=== PATIENT | female | born 1970 | race Caucasian/White ===

== ENCOUNTER 2017-04-17 12:27 | Emergency (ER) | payer MEDICAID ==
[~2017-04-17] VITALS: Ht 162.6 cm; Wt 71.5 kg
[~2017-04-17 12:27] MED LIST: BACTDS PO; NITR-58 PO; PHEN-537 PO
[2017-04-17 12:40] VITALS: Ht 162.6 cm; Wt 71.5 kg
--- NOTE | 2017-04-17 13:42 | RADRPT ---
PROCEDURE: CT Brain without contrast. CLINICAL INDICATION: Headaches TECHNIQUE: CT scan of the brain was performed on a multidetector high-resolution CT scan. Axial im aging was obtained of the brain without contrast administration. Coronal and sagittal reformatted i mages were obtained from the axial source images. Standard CT scan of the head without contrast prot ocols were performed. The total exam CTDI equals 44.97 mGy and the total exam DLP equals 720.23 mGy-cm. One or more of the following dose reduction techniques were used: - Automated exposure control. - Adjustment of the mA and/or kV according to patient size. Use of iterative reconstruction technique. COMPARISON: None. FINDINGS: Ventricular system and peripheral CSF spaces are unremarkable. Negative for intracranial masses hem orrhages or midline shift. The montana-white matter junction is unremarkable. The bones and calvarium are intact. Paranasal sinuses and mastoids visualized are unremarkable. Recommend reference to th e CT scan of the paranasal sinus report done the same day. IMPRESSION: No evidence of intracranial masses hemorrhages or midline shift. RPTAT:AAJJ Physician Armin Date Time Electronically viewed and signed by Physician Armin on 04/17/2017 13:42 BM/
--- NOTE | 2017-04-17 13:48 | RADRPT ---
PROCEDURE: CT scan of the sinuses without contrast. CLINICAL INDICATION: Headache TECHNIQUE: CT scan of the sinuses without contrast was performed on a multidetector high-resoluti on CT scan. Standard CT scan of the sinuses without contrast protocols were performed. The total exam CTDI equals 24.08 mGy and the total exam DLP equals 472.80 mGy-cm. One or more of the following dose reduction techniques were used: - Automated exposure control. - Adjustment of the mA and/or kV according to patient size. Use of iterative reconstruction technique. COMPARISON: None. FINDINGS: The paranasal sinuses are well pneumatized without evidence of mucosal thickening, soft tissue stacy s or air fluid levels. There is no evidence of bony erosion or expansion. The middle and inferior turbinates are unremarkable. The hiatus semilunaris are patent bilaterally. The nasal septum is sl ightly deviated to the left. There is no evidence of fractures. The globes are symmetrical without proptosis. There is no evidence of intra or extraconal fluid collections or masses. The muscles a nd optic nerves are unremarkable. The mastoids visualized are unremarkable. IMPRESSION: Negative CT scan of the paranasal sinuses. RPTAT:AAJJ Physician Armin Date Time Electronically viewed and signed by Physician Armin on 04/17/2017 13:48 /
[2017-04-17] MEDS ORDERED: IBUP-1542 PO (13:52)
[2017-04-17] MEDS ORDERED: PRED20TA PO (13:52)
[2017-04-17] MEDS ORDERED: ACETAMINOPHEN 500 MG TAB PO STA (13:53)
--- NOTE | 2017-04-17 13:56 | ERD ---
ER Documentation Chief Complaint Date/Time DATE: 04/17/17 TIME: 13:54 Chief Complaint [place] and dizziness starting this morning; no n/v HPI This 46-year-old female presents with headache sensation of mild dizziness possible swelling on the right side of the face starting today. She denies any fevers, congestion, cough, sore throat patient denies any visual changes or visual field deficits. She has a history of trauma. Pain is primarily in the right periorbital area and right cheek. ROS All systems reviewed and are negative except as per history of present illness. Medications Home Meds Active Scripts Ibuprofen* (Motrin*) 600 Mg Tab, 600 MG PO Q6H Y for PAIN, #20 TAB Prov:MICHELLE CAMILO MD 04/17/17 Prednisone* (Prednisone*) 20 Mg Tab, 40 MG PO DAILY for 4 Days, TAB Prov:MICHELLE CAMILO MD 04/17/17 Phenazopyridine Hcl* (Pyridium*) 100 Mg Tab, 100 MG PO TID Y for PAIN, #9 TAB 0 Refills Prov:WILD MAGANA PA-C 12/05/15 Nitrofurantoin Monohyd Macrocr (Macrobid) 100 Mg Capsr, 100 MG PO BID, #14 CAP 0 Refills Prov:WILD MAGANA PA-C 12/05/15 Phenazopyridine Hcl* (Pyridium*) 100 Mg Tab, 100 MG PO TID for 3 Days, TAB Prov:TREVER MARTIN 07/25/15 Sulfamethoxazole-Trimethoprim* (Bactrim* DS) 800-160 Mg Tab, 1 TAB PO BID for 10 Days, TAB Prov:TREVER MARTIN 07/25/15 Allergies Allergies: Coded Allergies: No Known Drug Allergy (Verified Allergy, Mild, 07/17/14) PMhx/Soc History of Surgery: Yes (APPENDECTOMY, C=SECTIONS X 3) Anesthesia Reaction: No Hx Neurological Disorder: No Hx Respiratory Disorders: No Hx Cardiac Disorders: No Hx Psychiatric Problems: No Hx Miscellaneous Medical Probl: No Hx Alcohol Use: No Hx Substance Use: No Hx Tobacco Use: No Physical Exam Vitals Vital Signs Date Time Temp Pulse Resp B/P Pulse Ox O2 Delivery O2 Flow Rate FiO2 04/17/17 12:40 98.2 70 18 124/61 99 Physical Exam Const: [] Alert, not ill-appearing per Head: Atraumatic Eyes: Normal Conjunctiva. Eyes are PERRLA and extra movements intact. Also some very subtle swelling on the right side of the face. There is no warmth, erythema or bony tenderness or deformities. TMs normal. ENT: Normal External Ears, Nose and Mouth. Neck: Full range of motion..~ No meningismus. Resp: Clear to auscultation bilaterally Cardio: Regular rate and rhythm, no murmurs Abd: Soft, non tender, non distended. Normal bowel sounds Skin: No petechiae or rashes Back: No midline or flank tenderness Ext: No cyanosis, or edema Neur: Awake and alert. Normal gait. Cranial nerves II through XII grossly intact Psych: Normal Mood and Affect Procedures/MDM Insert causes swelling and pain a CT brain and sinuses were performed which is as normal by the radiologist. Patient is right-sided headache very subtle swelling. He may be an allergic reaction. Consideration for Atkinson's palsy shows no specific cranial nerve VII palsy. No evidence of cellulitis, orbital cellulitis, neurologic deficit or signs or symptoms on studies to suggest intracranial hemorrhage, bleeding, additional causes of possible symptoms. Patient will be treated with short course prednisone and ibuprofen and instructed to follow-up with primary doctor this week return to the ER for any worsening symptoms. The patient was stable with no new complaints during the ER course. Clinically, there is no current evidence to suggest meningitis, sepsis, acute abdomen, pneumonia, acute coronary syndrome, pulmonary embolism, or any other emergent condition appearing to require further evaluation or hospitalization. The patient should certainly return for any new or worsening symptoms per the aftercare instructions. They should otherwise follow-up with her primary care doctor for reevaluation this week. Departure Diagnosis: Primary Impression: Headache Headache type: unspecified Headache chronicity pattern: unspecified pattern Intractability: not intractable Qualified Code: R51 - Nonintractable headache, unspecified chronicity pattern, unspecified headache type Condition: Stable Patient Instructions: Headache, Unspecified [facility] Usted se [place] hecho un examen mdico de control que le indica que no est en julio c condicin que requiera tratamiento urgente en el Departamento de Emergencia. Un estudio ms profundo y el tratamiento de mcdonald condicin pueden esperar sin ningn riesgo hasta que usted sea atendida/o en el consultorio de mcdonald mdico o julio c cl zeeshan. Es responsabilidad suya arreglar julio c carlos a para el seguimiento del nolan. MANEJO DE CONDICIONES NO URGENTES EN EL FUTURO 1) Si usted tiene un mdico de atencin primaria: Usted debera llamar a mcdonald mdico de atencin primaria antes de venir al departamento de emergencia. Despus de las horas de consultorio, mcdonald doctor o mcdonald asociado/a est disponible por telfono. El mdico o enfermero de cristiano en el servicio telefnico puede asesorarle por lyndsey medio para atender el problema, o nolan contrario se puede programar julio c carlos a. 2) Si usted no tiene un mdico de atencin primaria: Llame al mdico o clnica de referencia que aparece abajo martita las horas de consultorio para hacer julio c carlos a para que le vean. CLINICAS: [facility] [phone] [facility] [facility] [phone] [facility] [phone] [facility]. [place] [id number] [phone] [facility]. [place] [address] [phone] [facility]. [phone] [address] Additional Instructions: Examines normal hoy. Cheque otro vez con mcdonald doctor primario en el proximo maloney or regresa para mas o nueva simptomas. MICHELLE CAMILO MD April 17, 2017 13:56
[2017-04-17] MEDS ORDERED: predniSONE 20 MG TAB PO ONE (14:00)
== END 2017-04-17 14:39 | disposition home or self-care (01) ==
LOC: FTE 12:27
DX: R51 Headache (principal)
CPT/HCPCS: 70450; 70486; J7512; Z7502; Z7610

== ENCOUNTER 2017-06-19 06:41 | Emergency (ER) | payer MEDICAID ==
[~2017-06-19] VITALS: Ht 160 cm; Wt 70.0 kg
[~2017-06-19 06:41] MED LIST changes: +IBUP-1542 PO; +PRED20TA PO
[2017-06-19 06:47] VITALS: Ht 160 cm; Wt 70.0 kg
[2017-06-19] MEDS ORDERED: morphine 2 MG INJ IV STA (07:05)
[2017-06-19] MEDS ORDERED: ONDANSETRON 4 MG INJ IV STA (07:05)
[2017-06-19] MEDS ORDERED: SOD CHLORIDE 0.9% 1,000 ML IV STA (07:05)
[2017-06-19 07:40] LABS: BASOPHILS % 0.3 % (0.0-2.0); EOSINOPHILS # 0.3 10^3/ul (0.0-0.5); EOSINOPHILS % 4.2 % (0.0-7.0); HEMATOCRIT 35.2 % (37.0-47.0); HEMOGLOBIN 11.3 g/dl (12.0-16.0); LYMPHOCYTES # 2.5 10^3/ul (0.8-2.9); LYMPHOCYTES % 41.3 % (15.0-51.0); MEAN CORPUSCULAR HEMOGLOBIN 24.6 pg (29.0-33.0); MEAN CORPUSCULAR HGB CONC 32.1 g/dl (32.0-37.0); MEAN CORPUSCULAR VOLUME 76.5 fl (82.0-101.0); MEAN PLATELET VOLUME 9.2 fl (7.4-10.4); MONOCYTE # 0.6 10^3/ul (0.3-0.9); MONOCYTES % 10.1 % (0.0-11.0); NEUTROPHIL # 2.7 10^3/ul (1.6-7.5); NEUTROPHILS % 43.9 % (39.0-77.0); PLATELET COUNT 410 10^3/UL (140-415); RED CELL DISTRIBUTION WIDTH 17.2 % (11.5-14.5); WHITE BLOOD COUNT 6.1 10^3/ul (4.8-10.8)
[2017-06-19 07:41] LABS: ADD UMIC YES; UR ASCORBIC ACID NEGATIVE (NEGATIVE); UR BACTERIA FEW /HPF (NONE SEEN); UR BILIRUBIN (Dip) NEGATIVE (NEGATIVE); UR BLOOD (Dip) NEGATIVE (NEGATIVE); UR CLARITY CLEAR (CLEAR); UR COLOR STRAW (YELLOW); UR GLUCOSE (Dip) NEGATIVE (NEGATIVE); UR KETONES (Dip) NEGATIVE (NEGATIVE); UR LEUKOCYTE ESTERASE (Dip) TRACE Leu/ul (NEGATIVE); UR NITRITE (Dip) NEGATIVE (NEGATIVE); UR RBC 1 /HPF (0-5); UR TOTAL PROTEIN (Dip) NEGATIVE (NEGATIVE); UR UROBILINOGEN (Dip) NEGATIVE (NEGATIVE)
--- NOTE | 2017-06-19 07:52 | ERA ---
ER Documentation Chief Complaint Date/Time DATE: 06/19/17 TIME: 07:47 Chief Complaint epigastric pain with nausea x 2 days HPI This is a 46-year-old female with a chief complaint of epigastric pain 2 days. Patient is also complaining of nausea. Patient denies fever, chills, shortness of breath, chest pain, or migrating pain. Patient denies any medical conditions or daily medications. Vaccination status up-to-date. No recent travel. Denies alcohol or drug use. Nursing notes have been reviewed and are consistent with history given. ROS All systems reviewed and are negative except as per history of present illness. Medications Home Meds Active Scripts Famotidine* (Pepcid*) 20 Mg Tablet, 20 MG PO BID for 4 Days, TAB Prov:DELMA BRANTLEY PA-C 06/19/17 Ibuprofen* (Motrin*) 600 Mg Tab, 600 MG PO Q6H Y for PAIN, #20 TAB Prov:MICHELLE CAMILO MD 04/17/17 Prednisone* (Prednisone*) 20 Mg Tab, 40 MG PO DAILY for 4 Days, TAB Prov:MICHELLE CAMILO MD 04/17/17 Phenazopyridine Hcl* (Pyridium*) 100 Mg Tab, 100 MG PO TID Y for PAIN, #9 TAB 0 Refills Prov:WILD MAGANA PA-C 12/05/15 Nitrofurantoin Monohyd Macrocr (Macrobid) 100 Mg Capsr, 100 MG PO BID, #14 CAP 0 Refills Prov:WILD MAGANA PA-C 12/05/15 Phenazopyridine Hcl* (Pyridium*) 100 Mg Tab, 100 MG PO TID for 3 Days, TAB Prov:TREVER MARTIN 07/25/15 Sulfamethoxazole-Trimethoprim* (Bactrim* DS) 800-160 Mg Tab, 1 TAB PO BID for 10 Days, TAB Prov:TREVER MARTIN 07/25/15 Allergies Allergies: Coded Allergies: No Known Drug Allergy (Verified Allergy, Mild, 06/19/17) PMhx/Soc History of Surgery: Yes (APPENDECTOMY, C=SECTIONS X 3) Anesthesia Reaction: No Hx Neurological Disorder: No Hx Respiratory Disorders: No Hx Cardiac Disorders: No Hx Psychiatric Problems: No Hx Miscellaneous Medical Probl: No Hx Alcohol Use: No Hx Substance Use: No Hx Tobacco Use: No Smoking Status: Never smoker Physical Exam Vitals Vital Signs Date Time Temp Pulse Resp B/P Pulse Ox O2 Delivery O2 Flow Rate FiO2 06/19/17 06:47 98.2 68 18 112/74 99 Physical Exam Const: Obese 46-year-old female in no acute distress Head: Normocephalic, Atraumatic. Eyes: Jaundice. Non-injected; No discharge or foreign body. EOMI and SHEFALI bilaterally. Ears: Normal External Ears, EACs clear, TM normal bilaterally without erythema. Nose: Normal external nose; no discharge, septal deviation, or sinus tenderness. Oral: No oral edema visualized. Mucous membranes moist and pink. Neck: No cervical lymphadenopathy, masses or goiter palpated. Trachea midline. Supple ~ No meningismus. Pulm: Good air movement in upper and lower respiratory tracts. No dyspnea, stridor, tripoding or drooling. Clear to auscultation bilaterally. Cardio: Regular rate and rhythm; No murmurs, gallops or rubs auscultated. No JVD grossly observed. Radial and posterior tibial pulses 2+ bilaterally. No cyanosis. Capillary refill less than 2 seconds. Abd: Mild to moderate epigastric and right upper quadrant tenderness. Positive Heller sign. Soft, non distended. No guarding, masses. Normal bowel sounds. No McBurney's point tenderness. MS: Normal motor strength, normal tone with gross examination. Skin: Mild jaundice. No petechiae or rashes. No ulcer, induration. Good turgor. Back: No midline, flank or CVA tenderness. Ext: No edema or palpable cord. Normal movement of all extremities grossly observed. Neur: Awake, alert and oriented x3. Neurovascularly intact bilaterally. Psych: Normal Mood and Affect. Result Diagram: 06/19/17 0717 06/19/17 0717 Results 24 hrs Laboratory Tests Test 06/19/17 07:17 White Blood Count 6.110^3/ul Red Blood Count 4.6010^6/ul Hemoglobin 11.3g/dl Hematocrit 35.2% Mean Corpuscular Volume 76.5fl Mean Corpuscular Hemoglobin 24.6pg Mean Corpuscular Hemoglobin Concent 32.1g/dl Red Cell Distribution Width 17.2% Platelet Count 21405^3/UL Mean Platelet Volume 9.2fl Neutrophils % 43.9% Lymphocytes % 41.3% Monocytes % 10.1% Eosinophils % 4.2% Basophils % 0.3% Nucleated Red Blood Cells % 0.0/100WBC Neutrophils # 2.710^3/ul Lymphocytes # 2.510^3/ul Monocytes # 0.610^3/ul Eosinophils # 0.310^3/ul Basophils # 0.010^3/ul Nucleated Red Blood Cells # 0.010^3/ul Urine Color STRAW Urine Clarity CLEAR Urine pH 6.0 Urine Specific Gallina 1.010 Urine Ketones NEGATIVEmg/dL Urine Nitrite NEGATIVEmg/dL Urine Bilirubin NEGATIVEmg/dL Urine Urobilinogen NEGATIVEmg/dL Urine Leukocyte Esterase TRACELeu/ul Urine Microscopic RBC 1/HPF Urine Microscopic WBC 2/HPF Urine Bacteria FEW/HPF Urine Hemoglobin NEGATIVEmg/dL Urine Glucose NEGATIVEmg/dL Urine Total Protein NEGATIVEmg/dl Sodium Level 145mmol/L Potassium Level 3.9mmol/L Chloride Level 103mmol/L Carbon Dioxide Level 28mmol/L Anion Gap 18 Blood Urea Nitrogen 12mg/dl Creatinine 0.66mg/dl Glucose Level 99mg/dl Calcium Level 9.3mg/dl Total Bilirubin 0.3mg/dl Direct Bilirubin 0.00mg/dl Indirect Bilirubin 0.3mg/dl Aspartate Amino Transf (AST/SGOT) 35IU/L Alanine Aminotransferase (ALT/SGPT) 38IU/L Alkaline Phosphatase 86IU/L Total Protein 8.2g/dl Albumin 4.2g/dl Globulin 4.00g/dl Albumin/Globulin Ratio 1.05 Lipase 94U/L Current Medications Medications (Trade) Dose Ordered Sig/Yue Route PRN Reason Start Time Stop Time Status Last Admin Dose Admin Sodium Chloride (NS) 1,000 ml @ 1,000 mls/hr Q1H STAT IV 06/19/17 07:05 06/19/17 08:04 DC 06/19/17 07:32 Morphine Sulfate (morphine) 2 mg ONCE STAT IV 06/19/17 07:05 06/19/17 07:06 DC 06/19/17 07:32 Ondansetron HCl (Zofran Inj) 4 mg ONCE STAT IV 06/19/17 07:05 06/19/17 07:06 DC 06/19/17 07:32 Procedures/[facility] 46-year-old female presented with a chief complaint of upper abdominal pain and nausea 2 days. Physical exam was remarkable for positive Heller sign, jaundice , right upper quadrant tenderness and epigastric tenderness. Patient will receive labs including CBC, CMP, lipase, urinalysis and urine test. Urine test was unremarkable. Labs were remarkable for the following: Urinalysis: Trace leukocyte esterase, few bacteria CBC: Largely unremarkable with mild anemia. Hemoglobin >11. CMP: Anion gap 18 Patient received a right upper quadrant ultrasound that was read by the radiologist revealed the following: Gallbladder polyp that is probably of no clinical significance, otherwise unremarkable. At this time I do not suspect acute pancreatitis, cholangitis, myocardial/ Intestinal ischemia, pneumonia, hernia, or esophageal rupture. On repeat exam, the abdomen has improved and is less tender. Most likely diagnosis is epigastric pain due to unknown origin versus gastritis. The patient is well appearing, and tolerates PO. I have spoke with the patient regarding their condition and future management. They have verbally responded that they understand their status and treatment plan. The patients vitals are stable, and their current condition is appropriate for discharge. The patient will be given discharge instructions with return precautions. Departure Diagnosis: Primary Impression: Epigastric pain Condition: Stable Additional Instructions: Follow up with your PCP within the next 1-3 days for a more thorough evaluation and a possible referral to a specialist. Return the the emergency department immediately if symptoms worsen or change. If you have any questions regarding medications, ask your pharmacist or us before you leave. If any adverse reactions occur while taking your medications, discontinue the treatment and return to the emergency department immediately. Take your medications as directed, and complete the entire course of treatment. DELMA BRANTLEY PA-C Jun 19, 2017 07:52
[2017-06-19 07:59] LABS: ALBUMIN 4.2 g/dl (3.3-4.9); ALBUMIN/GLOBULIN RATIO 1.05; BILIRUBIN,INDIRECT 0.3 mg/dl (0-1.1); BILIRUBIN,TOTAL 0.3 mg/dl (0.2-1.3); CALCIUM 9.3 mg/dl (8.4-10.2); CREATININE 0.66 mg/dl (0.44-1.00); POTASSIUM 3.9 mmol/L (3.5-5.1); TOTAL PROTEIN 8.2 g/dl (6.1-8.1)
--- NOTE | 2017-06-19 08:14 | RADRPT ---
PROCEDURE: US Abdomen (Right upper quadrant) CLINICAL INDICATION: Abdominal pain. TECHNIQUE: Multiple real-time longitudinal and transverse images were acquired of the patient's ri ght upper quadrant utilizing a curved array transducer. COMPARISON: None. FINDINGS: Liver demonstrates mild nonspecific coarsening of the liver echotexture. No focal liver mass. Portal vein demonstrates hepatopetal flow. Gallbladder demonstrates a 4 mm gallbladder polyp. There is no gallbladder wall thickening or peric holecystic fluid. No intra- or extrahepatic biliary dilation. Pancreas is partially visualized and grossly unremarkable. Right kidney demonstrates no hydronephrosis or nephrolithiasis. No ascites. Proximal aorta and IVC are unremarkable. MEASUREMENTS: Liver: 14.3 cm Common Duct: 0.2 cm Right Kidney: 9.9 cm IMPRESSION: 1. 4 mm gallbladder polyp that is of doubtful clinical significance. 2. Otherwise, unremarkable examination. RPTAT: EE .Calvin Conklin MD, Date Time Electronically viewed and signed by .Calvin Conklin MD, on 06/19/2017 08:19 .C/
[2017-06-19] MEDS ORDERED: FAMO-96 PO (08:21)
[2017-06-19 09:05] VITALS: BP 109/70; PULSE 71; RESP 18; TEMP 98.2
== END 2017-06-19 09:06 | disposition home or self-care (01) ==
LOC: FTE 06:41
DX: R10.13 Epigastric pain (principal)
CPT/HCPCS: 36415; 76705; 80053; 81001; 83690; 85025; 96374; 96375; J2270; J2405; J7030; Z7502

== ENCOUNTER 2017-07-02 08:06 | Emergency (ER) | payer MEDICAID ==
[~2017-07-02] VITALS: Ht 154.9 cm; Wt 69.5 kg
[~2017-07-02 08:06] MED LIST changes: +FAMO-96 PO
[2017-07-02 08:08] VITALS: Ht 154.9 cm; Wt 69.5 kg
[2017-07-02] MEDS ORDERED: ONDANSETRON (ODT) 4 MG TAB ODT STA (08:28)
[2017-07-02] MEDS ORDERED: MECLIZINE 12.5 MG TAB PO ONE (08:30)
--- NOTE | 2017-07-02 09:05 | RADRPT ---
PROCEDURE: CT Brain without contrast. CLINICAL INDICATION: Headache, nausea vomiting and dizziness TECHNIQUE: A CT of the brain was performed on a multidetector CT scanner utilizing axial sections from the skull base through the vertex without contrast. Images were reviewed on a high-resolution [employer] workstation. Exam CTDI = 43.68 mGy and the DLP = 630.20 mGy-cm. One or more of the following dose reduction techniques were used: Automated exposure control Adjustment of the mA and/or kV according to patient size. Use of iterative reconstruction technique. COMPARISON: None available FINDINGS: There is no evidence of intracranial hemorrhage, mass effect or midline shift. No abnormal intra-ax ial or extra-axial fluid collections are seen. The density of the brain is normal and the montana/whit e matter differentiation is well preserved. The osseous structures are unremarkable. Paranasal sin uses are clear. IMPRESSION: 1. No intracranial hemorrhage, mass effect or midline shift. RPTAT: EE .Sylvester Antoine MD, MD Date Time Electronically viewed and signed by .Sylvester Antoine MD, on 07/02/2017 09:04 .O/
[2017-07-02] MEDS ORDERED: MECL12.574 PO (10:15)
--- NOTE | 2017-07-02 10:19 | ERD ---
ER Documentation Chief Complaint Date/Time DATE: 07/02/17 TIME: 10:16 Chief Complaint Dizzy HPI This is a 46-year-old female who complains this morning she woke up with sudden severe room spinning when she tried to get out of bed. She says it makes her nauseated but no vomiting diarrhea no focal neurological complaints such as numbness weakness speech or visual change. No recent illness or ringing in the ears no chest pain shortness of breath. She does have mild diffuse dull headache that she has had this since this morning as well. If she keeps her head still the symptoms get better if she says she moves her head the spinning sensation will get worse ROS All systems reviewed and are negative except as per history of present illness. Medications Home Meds Active Scripts Meclizine Hcl* (Antivert*) 12.5 Mg Tab, 25 MG PO Q6H Y for DIZZINESS, #20 TAB Prov:LYNSEY GARSIA DO 07/02/17 Famotidine* (Pepcid*) 20 Mg Tablet, 20 MG PO BID for 4 Days, TAB Prov:DELMA BRANTLEY PA-C 06/19/17 Ibuprofen* (Motrin*) 600 Mg Tab, 600 MG PO Q6H Y for PAIN, #20 TAB Prov:MICHELLE CAMILO MD 04/17/17 Prednisone* (Prednisone*) 20 Mg Tab, 40 MG PO DAILY for 4 Days, TAB Prov:MICHELLE CAMILO MD 04/17/17 Phenazopyridine Hcl* (Pyridium*) 100 Mg Tab, 100 MG PO TID Y for PAIN, #9 TAB 0 Refills Prov:WILD MAGANA PA-C 12/05/15 Nitrofurantoin Monohyd Macrocr (Macrobid) 100 Mg Capsr, 100 MG PO BID, #14 CAP 0 Refills Prov:WILD MAGANA PA-C 12/05/15 Phenazopyridine Hcl* (Pyridium*) 100 Mg Tab, 100 MG PO TID for 3 Days, TAB Prov:TREVER MARTIN 07/25/15 Sulfamethoxazole-Trimethoprim* (Bactrim* DS) 800-160 Mg Tab, 1 TAB PO BID for 10 Days, TAB Prov:TREVER MARTIN 07/25/15 Allergies Allergies: Coded Allergies: No Known Drug Allergy (Verified Allergy, Mild, 06/19/17) PMhx/Soc History of Surgery: Yes (APPENDECTOMY, C=SECTIONS X 3) Anesthesia Reaction: No Hx Neurological Disorder: No Hx Respiratory Disorders: No Hx Cardiac Disorders: No Hx Psychiatric Problems: No Hx Miscellaneous Medical Probl: No Hx Alcohol Use: No Hx Substance Use: No Hx Tobacco Use: No Smoking Status: Never smoker FmHx Family History: No coronary disease Physical Exam Vitals Vital Signs Date Time Temp Pulse Resp B/P Pulse Ox O2 Delivery O2 Flow Rate FiO2 07/02/17 08:08 97.6 70 18 145/84 99 Physical Exam C Const: Well-developed, well-nourished Head: Atraumatic, normocephalic Eyes: Normal Conjunctiva, PERRLA, EOMI, normal sclera, no nystagmus ENT: Normal External Ears, Nose and Mouth, moist mucus membranes. Neck: Full range of motion. No meningismus, no lymphadenopathy. Resp: Clear to auscultation bilaterally, no wheezing, rhonchi, rales Cardio: Regular rate and rhythm, no murmurs, S1 S2 present Abd: Soft, non tender x 4, non distended. Normal bowel sounds, no guarding or rebound, no pulsitile abdominal masses or bruits Skin: No petechiae or rashes, no ecchymosis , no maculopapular rash Back: No midline or flank tenderness Ext: No cyanosis, or edema, FROM x 4, normal inspection, neurovascularly intact x 4, positive Hallpike Neur: Awake and alert, STR 5/5 x 4, sensation intact x 4, no focal findings, cerebellum intact Psych: Normal Mood and Affect Results 24 hrs Current Medications Medications (Trade) Dose Ordered Sig/Yue Route PRN Reason Start Time Stop Time Status Last Admin Dose Admin Meclizine HCl (Antivert) 25 mg ONCE ONCE PO 07/02/17 08:30 07/02/17 08:31 DC 07/02/17 08:40 Ondansetron HCl (Zofran Odt) 4 mg ONCE STAT ODT 07/02/17 08:28 07/02/17 08:30 DC 07/02/17 08:40 Procedures/MDM PROCEDURE: CT Brain without contrast. CLINICAL INDICATION: Headache, nausea vomiting and dizziness TECHNIQUE: A CT of the brain was performed on a multidetector CT scanner utilizing axial sections from the skull base through the vertex without contrast. Images were reviewed on a high-resolution PACS workstation. Exam CTDI = 43.68 mGy and the DLP = 630.20 mGy-cm. One or more of the following dose reduction techniques were used: Automated exposure control Adjustment of the mA and/or kV according to patient size. Use of iterative reconstruction technique. COMPARISON: None available FINDINGS: There is no evidence of intracranial hemorrhage, mass effect or midline shift. No abnormal intra-axial or extra-axial fluid collections are seen. The density of the brain is normal and the montana/white matter differentiation is well preserved. The osseous structures are unremarkable. Paranasal sinuses are clear. IMPRESSION: 1. No intracranial hemorrhage, mass effect or midline shift. RPTAT: EE .Sylvester Antoine MD, MD Date Time Electronically viewed and signed by .Sylvester Antoine MD, on 07/02/2017 09:04 .O/ CC: LYNSEY GARSIA DO Patient says her vertigo is resolved after meclizine. Vertigo does sound peripheral nonessential. I will discharge her home on Antivert Departure Diagnosis: Primary Impression: Vertigo Condition: Stable Patient Instructions: Vertigo, Unspecified Referrals: NO PRIMARY,CARE PHYSICIAN (PCP) LYNSEY GARSIA DO Jul 02, 2017 10:19
== END 2017-07-02 10:42 | disposition home or self-care (01) ==
LOC: E/R 08:06
DX: R42 Dizziness and giddiness (principal); R40.2142 Coma scale, eyes open, spontaneous, at arrival to emergency department; R40.2362 Coma scale, best motor response, obeys commands, at arrival to emergency department; R11.0 Nausea
CPT/HCPCS: 70450; Z7502; Z7610; 93005

== ENCOUNTER 2017-07-09 19:30 | Emergency (ER) | payer MEDICAID ==
[~2017-07-09] VITALS: Ht 154.9 cm; Wt 71.0 kg
[~2017-07-09 19:30] MED LIST changes: +MECL12.574 PO
[2017-07-09 19:35] VITALS: Ht 154.9 cm; Wt 71.0 kg
[2017-07-09 21:54] LABS: URINE BLOOD (Dip) POC Trace-intact (NEGATIVE)
[2017-07-09] MEDS ORDERED: KETOROLAC 60 MG INJ IM STA (23:01)
[2017-07-09] MEDS ORDERED: ONDA4TAB11 PO (23:11)
[2017-07-09] MEDS ORDERED: NAPR-688 PO (23:11)
[2017-07-09] MEDS ORDERED: NITR-58 PO (23:11)
[2017-07-09] MEDS ORDERED: PHEN-612 PO (23:11)
[2017-07-09] MEDS ORDERED: CIPR500T4 PO (23:11)
[2017-07-09 23:37] VITALS: BP 123/74; PULSE 59; RESP 22; TEMP 97.5
--- NOTE | 2017-07-09 23:40 | ERD ---
ER Documentation Chief Complaint Date/Time DATE: 07/09/17 TIME: 23:01 Chief Complaint painful urination x18 days. Denies fever. c/o headache HPI This 46-year-old male has had painful urination for 18 days. She had no fever but occasional headache. She also has pain in her suprapubic region. Denies flank pain fever and chills. ROS All systems reviewed and are negative except as per history of present illness. Medications Home Meds Active Scripts Meclizine Hcl* (Antivert*) 12.5 Mg Tab, 25 MG PO Q6H Y for DIZZINESS, #20 TAB Prov:LYNSEY GARSIA DO 07/02/17 Famotidine* (Pepcid*) 20 Mg Tablet, 20 MG PO BID for 4 Days, TAB Prov:DELMA BRANTLEY PA-C 06/19/17 Ibuprofen* (Motrin*) 600 Mg Tab, 600 MG PO Q6H Y for PAIN, #20 TAB Prov:MICHLELE CAMILO MD 04/17/17 Prednisone* (Prednisone*) 20 Mg Tab, 40 MG PO DAILY for 4 Days, TAB Prov:MICHELLE CAMILO MD 04/17/17 Phenazopyridine Hcl* (Pyridium*) 100 Mg Tab, 100 MG PO TID Y for PAIN, #9 TAB 0 Refills Prov:WILD MAGANA PA-C 12/05/15 Nitrofurantoin Monohyd Macrocr (Macrobid) 100 Mg Capsr, 100 MG PO BID, #14 CAP 0 Refills Prov:WILD MAGANA PA-C 12/05/15 Phenazopyridine Hcl* (Pyridium*) 100 Mg Tab, 100 MG PO TID for 3 Days, TAB Prov:TREVER MARTIN 07/25/15 Sulfamethoxazole-Trimethoprim* (Bactrim* DS) 800-160 Mg Tab, 1 TAB PO BID for 10 Days, TAB Prov:TREVER MARTIN 07/25/15 Allergies Allergies: Coded Allergies: No Known Drug Allergy (Verified Allergy, Mild, 06/19/17) PMhx/Soc History of Surgery: Yes (APPENDECTOMY, C=SECTIONS X 3) Anesthesia Reaction: No Hx Neurological Disorder: No Hx Respiratory Disorders: No Hx Cardiac Disorders: No Hx Psychiatric Problems: No Hx Miscellaneous Medical Probl: No Hx Alcohol Use: No Hx Substance Use: No Hx Tobacco Use: No Smoking Status: Never smoker Physical Exam Vitals Vital Signs Date Time Temp Pulse Resp B/P Pulse Ox O2 Delivery O2 Flow Rate FiO2 07/09/17 19:35 97.8 68 18 111/67 98 Physical Exam Const: [] No distress Head: Atraumatic Abd: Soft, mild suprapubic tenderness without guarding or rebound, non distended. Normal bowel sounds Skin: No petechiae or rashes Ext: No cyanosis, or edema Neur: Awake and alert and oriented 3, no focal deficits Psych: Normal Mood and Affect Results 24 hrs Laboratory Tests Test 07/09/17 21:59 Bedside Urine pH (LAB) 5.5 Bedside Urine Protein (LAB) Negative Bedside Urine Glucose (UA) Negative Bedside Urine Ketones (LAB) Negative Bedside Urine Blood Trace-intact Bedside Urine Nitrite (LAB) Negative Bedside Urine Leukocyte Esterase (L 1+ Procedures/MDM Urinary tract infection without any signs of pyelonephritis. However the urinary tract infection has been brewing for almost 3 weeks. Patient at her request was given Toradol IM in the emergency room for her pain. Going to discharge her with ciprofloxacin, Macrobid, Zofran ODT just in case she develops nausea, Pyridium, naproxen. Primary care follow-up in 2-3 days and return precautions. Departure Diagnosis: Primary Impression: UTI (urinary tract infection) Condition: Stable CHAD FLOYD DO Jul 09, 2017 23:06
== END 2017-07-09 23:10 | disposition home or self-care (01) ==
LOC: FTE 19:30
DX: N39.0 Urinary tract infection, site not specified (principal)
CPT/HCPCS: 81003; 96372; J1885; Z7502

== ENCOUNTER 2018-04-10 18:16 | Emergency (ER) | END 2018-04-10 21:12 | disposition home or self-care (01) ==

== ENCOUNTER 2018-11-28 23:51 | Emergency (ER) | payer MEDICAID ==
[~2018-11-28] VITALS: Ht 162.6 cm; Wt 73.0 kg
[~2018-11-28 23:51] MED LIST changes: +CIPR500T4 PO; +NAPR-688 PO; +ONDA4TAB11 PO; +PHEN-716 PO
[2018-11-28 23:54] VITALS: Ht 162.6 cm; Wt 73.0 kg
[2018-11-29] MEDS ORDERED: SODI126M NASAL (04:23)
[2018-11-29] MEDS ORDERED: IBUP-1542 PO (04:23)
[2018-11-29] MEDS ORDERED: GUAI-637 PO (04:23)
--- NOTE | 2018-11-29 04:28 | ERD ---
ER Documentation Chief Complaint Chief Complaint cough sore throat cough x1 month. off and on. +vomiting HPI 48-year-old female complaining of sore throat times 1 month. Patient states melissa t sore throat is on and off, mostly very mild. The pain got worse this week. Patient also has nasal congestion and cough for the last 3 days. Reports subjective fever, but did not check temperature at home. She did take Tylenol and Motrin at home for fever and pain, last dose was 4 PM yesterday. In addition, patient reports 3 episodes of vomiting yesterday. Denies abdominal p ain. Denies diarrhea. Denies shortness of breath. Denies sick contact. ROS All systems reviewed and are negative except as per history of present illness. Medications Home Meds Active Scripts Guaifenesin* (Robitussin*) 100 Mg/5 Ml Syrup, 200 MG PO Q4H PRN for COUGH, #120 ML Prov:TEREZA THOMPSON. EARLY CHILDHOOD TEACHER ASSISTANT 11/29/18 Sodium Chloride (Saline Nasal Mist) 126 Ml Mist, 2 SPRAY NASAL Q2H PRN for NASAL CONGESTION, #1 BOTTLE Prov:TEREZA THOMPSON. EARLY CHILDHOOD TEACHER ASSISTANT 11/29/18 Ibuprofen* (Motrin*) 600 Mg Tab, 600 MG PO Q6H PRN for PAIN AND OR ELEVATED TEMP, #30 TAB Prov:TEREZA THOMPSON. EARLY CHILDHOOD TEACHER ASSISTANT 11/29/18 Nitrofurantoin Monohyd Macrocr* (Macrobid*) 100 Mg Capsr, 100 MG PO BID, #6 CAP Prov:CHAD FLOYD DO 07/09/17 Ciprofloxacin Hcl* (Ciprofloxacin Hcl*) 500 Mg Tablet, 500 MG PO BID, #5 TAB Prov:CHAD FLOYD DO 07/09/17 Phenazopyridine Hcl* (Phenazopyridine Hcl*) 100 Mg Tablet, 100 MG PO TID, #8 TAB Prov:CHAD FLOYD DO 07/09/17 Naproxen* (Naproxen*) 500 Mg Tablet, 500 MG PO BID PRN for PAIN, #20 TAB Prov:CHAD FLOYD DO 07/09/17 Ondansetron (Zofran Odt) 4 Mg Tab.rapdis, 4 MG PO Q6, #10 Prov:CHAD FLOYD DO 07/09/17 Meclizine Hcl* (Antivert*) 12.5 Mg Tab, 25 MG PO Q6H PRN for DIZZINESS, #20 TAB Prov:LYNSEY GARSIA DO 07/02/17 Famotidine* (Pepcid*) 20 Mg Tablet, 20 MG PO BID for 4 Days, TAB Prov:DELMA BRANTLEY PA-C 06/19/17 Ibuprofen* (Motrin*) 600 Mg Tab, 600 MG PO Q6H PRN for PAIN, #20 TAB Prov:MICHELLE CAMILO MD 04/17/17 Prednisone* (Prednisone*) 20 Mg Tab, 40 MG PO DAILY for 4 Days, TAB Prov:MICHELLE CAMILO MD 04/17/17 Phenazopyridine Hcl* (Pyridium*) 100 Mg Tab, 100 MG PO TID PRN for PAIN, #9 TAB 0 Refills Prov:WILD MAGANA PA-C 12/05/15 Nitrofurantoin Monohyd Macrocr (Macrobid) 100 Mg Capsr, 100 MG PO BID, #14 CAP 0 Refills Prov:WILD MAGANA PA-C 12/05/15 Phenazopyridine Hcl* (Pyridium*) 100 Mg Tab, 100 MG PO TID for 3 Days, TAB Prov:TREVER MARTIN 07/25/15 Sulfamethoxazole-Trimethoprim* (Bactrim* DS) 800-160 Mg Tab, 1 TAB PO BID for 10 Days, TAB Prov:TREVER MARTIN 07/25/15 Allergies Allergies: Coded Allergies: No Known Drug Allergy (Verified Allergy, Mild, 06/19/17) PMhx/Soc History of Surgery: Yes (APPENDECTOMY, C=SECTIONS X 3) Anesthesia Reaction: No Hx Neurological Disorder: No Hx Respiratory Disorders: No Hx Cardiac Disorders: No Hx Psychiatric Problems: No Hx Miscellaneous Medical Probl: Yes Hx Alcohol Use: No Hx Substance Use: No Hx Tobacco Use: No Smoking Status: Never smoker Physical Exam Vitals Vital Signs Date Temp Pulse Resp B/P (MAP) Pulse Ox O2 O2 Flow FiO2 Time Delivery Rate 11/28/18 97.1 76 20 153/67 98 23:54 (95) Physical Exam General: Well-developed, well-nourished, conscious and coherent, in no distress Skin: Warm and dry without rash, good texture and turgor Head: Normocephalic without evidence of trauma Eyes: Sclera and conjunctivae normal; pupils equal, round, and reactive to light; extraocular movements are intact Nose/Face: Nasal congestion with clear rhinorrhea Mouth/throat: Mucous membranes are moist. Posterior pharynx mildly erythematous without swelling or exudate Neck: Supple without meningismus or adenopathy. Carotids are equal. Trachea midline. No bruits or JVD Chest: Normal AP diameter. Good expansion without retractions. Nontender. Lungs are clear to auscultate bilaterally with good tidal volume Heart: Regular rate and rhythm. No murmur, rub, or gallops heard Extremities: Full range of motion. Good strength bilaterally. No erythema, ecchymosis, or edema. Peripheral pulses are intact. Sensation intact Neuro: Alert and oriented 4, GCS 15. Procedures/MDM Patient is afebrile, in no respiratory distress. Lungs are clear to auscultate. I doubt that patient has pneumonia or bronchitis. Patient does not have any abdominal tenderness on palpation. I doubt acute appendicitis, cholecystitis, bowel obstruction or other acute abdomen. Patient's symptoms is consistent with that of viral syndrome. Patient does not have any active vomiting, is able to maintain by mouth fluid intake. Patient does not show any sign of dehydration. Patient appears well, stable for discharge and outpatient management. Medical decision making shared with patient and family. Education provided to patient and family. Patient and family expressed understanding of the plan. Medications on discharge: Ibuprofen, saline nasal spray, Robitussin. Follow-up: Primary care provider in 2-3 days or return to ED if worse. Disclaimer: Inadvertent spelling and grammatical errors are likely due to EHR/dictation software use and do not reflect on the overall quality of patient care. Also, please note that the electronic time recorded on this note does not necessarily reflect the actual time of the patient encounter. Departure Diagnosis: Primary Impression: Viral syndrome Condition: Stable Patient Instructions: Viral Syndrome (Adult) [facility] Usted se [place] hecho un examen mdico de control que le indica que no est en julio c condicin que requiera tratamiento urgente en el Departamento de Emergencia. Un estudio ms profundo y el tratamiento de mcdonald condicin pueden esperar sin ningn riesgo hasta que usted sea atendida/o en el consultorio de mcdonald mdico o julio c clnica. Es responsabilidad suya arreglar julio c carlie para el seguimiento del nolan. MANEJO DE CONDICIONES NO URGENTES EN EL FUTURO 1) Si usted tiene un mdico de atencin primaria: Usted debera llamar a mcdonald mdico de atencin primaria antes de venir al departamento de emergencia. Despus de las horas de consultorio, mcdonald doctor o mcdonald asociado/a est disponible por telfono. El mdico o enfermero de cristiano en el servicio telefnico puede asesorarle por lyndsey medio para atender el problema, o nolan contrario se puede programar julio c carlie. 2) Si usted no tiene un mdico de atencin primaria: Llame al mdico o clnica de referencia que aparece abajo martita las horas de consultorio para hacer julio c carlie para que le vean. CLINICAS: [facility] [phone] [address] [facility] [phone] [address] [facility] [facility] [phone] [address] [facility]. [place] [id number] [phone] [facility]. [place] [address] [phone] [facility]. [phone] [address] Additional Instructions: Llame al doctor MAANA y sage julio c CARLIE PARA DENTRO DE 2-3 AMEZCUA.Dgale a la secretaria que nosotros le instruimos hacer esta carlie.Avise o llame si mcdonald condicin se empeora antes de la carlie. Regresa aqui si peor o no mejor. TEREZA THOMPSON NP Nov 29, 2018 04:28
[2018-11-29 04:29] VITALS: BP 148/80; PULSE 82; RESP 16
== END 2018-11-29 04:30 | disposition home or self-care (01) ==
LOC: FTE 23:51
DX: B34.9 Viral infection, unspecified (principal); R40.2412 Glasgow coma scale score 13-15, at arrival to emergency department
CPT/HCPCS: 99282

== ENCOUNTER 2019-04-03 09:44 | Emergency (ER) | payer MEDICAID ==
[~2019-04-03] VITALS: Wt 80.0 kg
[~2019-04-03 09:44] MED LIST changes: +GUAI-637 PO; +SODI126M NASAL
[2019-04-03 09:50] VITALS: BP 153/68; PULSE 67; RESP 18
[2019-04-03] MEDS ORDERED: MECL12.574 PO (10:52)
--- NOTE | 2019-04-03 18:38 | ERD ---
ER Documentation Chief Complaint Chief Complaint RIGHT SIDED TRONCOSO HPI 48-year-old female patient with no significant past medical history presents to ED complaining of a right-sided headache as well as positional dizziness. States that this feels exactly the same as 2 years ago when she had some dizziness with positional movements. Reports that the meclizine that she was prescribed worked for her symptoms. Denies any head or neck injuries. Denies any nausea, vomiting, diarrhea, neck stiffness. Denies any seizures, neck pain, blurred vision, diplopia, photophobia, photophobia. ROS All systems reviewed and are negative except as per history of present illness. Medications Home Meds Active Scripts Meclizine Hcl* (Antivert*) 12.5 Mg Tab, 12.5 MG PO Q6H PRN for DIZZINESS, #20 TAB Prov:INES POZO PA-C 04/03/19 Guaifenesin* (Robitussin*) 100 Mg/5 Ml Syrup, 200 MG PO Q4H PRN for COUGH, #120 ML Prov:TEREZA THOMPSON. WINE CONSULTANT 11/29/18 Sodium Chloride (Saline Nasal Mist) 126 Ml Mist, 2 SPRAY NASAL Q2H PRN for NASAL CONGESTION, #1 BOTTLE Prov:TEREZA THOMPSON. WINE CONSULTANT 11/29/18 Ibuprofen* (Motrin*) 600 Mg Tab, 600 MG PO Q6H PRN for PAIN AND OR ELEVATED TEMP, #30 TAB Prov:TEREZA THOMPSON. WINE CONSULTANT 11/29/18 Nitrofurantoin Monohyd Macrocr* (Macrobid*) 100 Mg Capsr, 100 MG PO BID, #6 CAP Prov:CHAD FLOYD DO 07/09/17 Ciprofloxacin Hcl* (Ciprofloxacin Hcl*) 500 Mg Tablet, 500 MG PO BID, #5 TAB Prov:CHAD FLOYD DO 07/09/17 Phenazopyridine Hcl* (Phenazopyridine Hcl*) 100 Mg Tablet, 100 MG PO TID, #8 TAB Prov:CHAD FLOYD DO 07/09/17 Naproxen* (Naproxen*) 500 Mg Tablet, 500 MG PO BID PRN for PAIN, #20 TAB Prov:CHAD FLOYD DO 07/09/17 Ondansetron (Zofran Odt) 4 Mg Tab.rapdis, 4 MG PO Q6, #10 Prov:CHAD FLOYD DO 07/09/17 Meclizine Hcl* (Antivert*) 12.5 Mg Tab, 25 MG PO Q6H PRN for DIZZINESS, #20 TAB Prov:LYNSEY GARSIA DO 07/02/17 Famotidine* (Pepcid*) 20 Mg Tablet, 20 MG PO BID for 4 Days, TAB Prov:DELMA BRANTLEY PA-C 06/19/17 Ibuprofen* (Motrin*) 600 Mg Tab, 600 MG PO Q6H PRN for PAIN, #20 TAB Prov:MICHELLE CAMILO MD 04/17/17 Prednisone* (Prednisone*) 20 Mg Tab, 40 MG PO DAILY for 4 Days, TAB Prov:MICHELLE CAMILO MD 04/17/17 Phenazopyridine Hcl* (Pyridium*) 100 Mg Tab, 100 MG PO TID PRN for PAIN, #9 TAB 0 Refills Prov:WILD MAGANA PA-C 12/05/15 Nitrofurantoin Monohyd Macrocr (Macrobid) 100 Mg Capsr, 100 MG PO BID, #14 CAP 0 Refills Prov:WILD MAGANA PA-C 12/05/15 Phenazopyridine Hcl* (Pyridium*) 100 Mg Tab, 100 MG PO TID for 3 Days, TAB Prov:TREVER MARTIN 07/25/15 Sulfamethoxazole-Trimethoprim* (Bactrim* DS) 800-160 Mg Tab, 1 TAB PO BID for 10 Days, TAB Prov:TREVER MARTIN 07/25/15 Allergies Allergies: Coded Allergies: No Known Drug Allergy (Verified Allergy, Mild, 06/19/17) PMhx/Soc History of Surgery: Yes (APPENDECTOMY, C=SECTIONS X 3) Anesthesia Reaction: No Hx Neurological Disorder: No Hx Respiratory Disorders: No Hx Cardiac Disorders: No Hx Psychiatric Problems: No Hx Miscellaneous Medical Probl: Yes Hx Alcohol Use: No Hx Substance Use: No Hx Tobacco Use: No Smoking Status: Never smoker FmHx Family History: No diabetes, No coronary disease Physical Exam Vitals Vital Signs Date Temp Pulse Resp B/P (MAP) Pulse Ox O2 O2 Flow FiO2 Time Delivery Rate 04/03/19 97.0 67 18 153/68 99 09:50 (96) Physical Exam Const: [id number], well-nourished. In no acute distress. Head: Atraumatic, normocephalic. No hematoma. No mills sign. Eyes: Normal Conjunctiva without injection. No purulent discharge. PERRLA. EOMI ENT: Normal external ear. Ear canal without erythema. Tympanic membrane pearly [place] without effusion or bulging. No hemotympanum. Nasal canal clear with normal turbinates. Moist oropharynx without tonsillar exudates. Non-erythematous pharynx. Uvula midline. No drooling. No trismus. Neck: No cervical midline tenderness. Full range of motion. No meningismus. No cervical lymphadenopathy. No JVD. Resp: Clear to auscultation bilaterally. No wheezing, rhonchi, rales, or crackles. No accessory muscle use. No retractions. Cardio: Regular rate and rhythm. No murmurs, rubs or gallops. Abd: Soft, non tender, non distended. Normal bowel sounds. No palpable masses. No rebound tenderness. No guarding. Negative McBurney's Point. Negative Heller's Sign. Skin: Normal skin turgor. No petechiae or rashes Back: No midline tenderness. No CVA tenderness. Ext: No cyanosis, or edema. Distal pulses intact bilaterally. Neur: Awake and alert. Normal gait. Normal coordination. Cranial Nerves II- VII intact. Normal finger to nose. Muscle strength 5/5. Sensation intact. Psych: Normal Mood and Affect Procedures/MDM 38-year-old female patient with no significant past medical history presents ED complaining of right-sided headache and dizziness. Patient is afebrile and nontoxic-appearing. Patient have any slurred speech. Patient is neurologically intact. Patient likely has positional vertigo. Low suspicion for acute myocardial infarction, pneumothorax, pericarditis, myocarditis, endocarditis, pneumonia, cardiac tamponade, pulmonary embolism, pleural effusion, AAA, aortic dissection, Boerhaave's syndrome, cardiac dysrhythmias,meningitis, intracranial bleed, seizure, stroke, TIA or other emergent conditions. Diagnosis: Positional vertigo Discharge medications: Meclizine Follow up with primary care physician in 1-2 days. Instructed patient to return to the ED sooner for any worsening symptoms. Patient's questions were answered. Patient is hemodynamically stable. Patient understood and agreed with discharge plan. Patient discharged stable. Disclaimer: Inadvertent spelling and grammatical errors are likely due to EHR/dictation software use and do not reflect on the overall quality of patient care. Also, please note that the electronic time recorded on this note does not necessarily reflect the actual time of the patient encounter. Departure Diagnosis: Primary Impression: Positional vertigo Condition: Stable Patient Instructions: Dizziness (Vertigo) and Balance Problems: Diagnostic Tests, Dizziness (Vertigo) and Balance Problems: Ensuring Your Safety, Vertigo, Unspecified Referrals: [facility] YOU HAVE RECEIVED A MEDICAL SCREENING EXAM AND THE RESULTS INDICATE THAT YOU DO NOT HAVE A CONDITION THAT REQUIRES URGENT TREATMENT IN THE EMERGENCY DEPARTMENT. FURTHER EVALUATION AND TREATMENT OF YOUR CONDITION CAN WAIT UNTIL YOU ARE SEEN IN YOUR DOCTORS OFFICE WITHIN THE NEXT 1-2 DAYS. IT IS YOUR RESPONSIBILITY TO MAKE AN APPOINTMENT FOR FOLOW-UP CARE. IF YOU HAVE A PRIMARY DOCTOR --you should call your primary doctor and schedule an appointment IF YOU DO NOT HAVE A PRIMARY DOCTOR YOU CAN CALL OUR PHYSICIAN REFERRAL HOTLINE AT IF YOU CAN NOT AFFORD TO SEE A PHYSICIAN YOU CAN CHOSE FROM THE FOLLOWING [facility] [address] [facility]. [facility] [address] [facility]. [facility] [address] [facility] [facility] [address] [facility] [address] [facility]. [facility]. [address] [facility]. [facility] YOU HAVE RECEIVED A MEDICAL SCREENING EXAM AND THE RESULTS INDICATE THAT YOU DO NOT HAVE A CONDITION THAT REQUIRES URGENT TREATMENT IN THE EMERGENCY DEPARTMENT. FURTHER EVALUATION AND TREATMENT OF YOUR CONDITION CAN WAIT UNTIL YOU ARE SEEN IN YOUR DOCTORS OFFICE WITHIN THE NEXT 1-2 DAYS. IT IS YOUR RESPONSIBILITY TO MAKE AN APPOINTMENT FOR FOLOW-UP CARE. IF YOU HAVE A PRIMARY DOCTOR --you should call your primary doctor and schedule and appointment IF YOU DO NOT HAVE A PRIMARY DOCTOR YOU CAN CALL OUR PHYSICIAN REFERRAL HOTLINE AT . IF YOU CAN NOT AFFORD TO SEE A PHYSICIAN YOU CAN CHOSE FROM THE FOLLOWING [facility] INSTITUTIONS: [facility] [address] [place] [address] [facility] [address] [place] [address] [facility] + [facility] [address] [place] [address] [facility] Additional Instructions: Llame al doctor MAANA y sage julio c CARLIE PARA DENTRO DE 2-3 AMEZCUA.Dgale a la secretaria que nosotros le instruimos hacer esta carlie.Avise o llame si mcdonald condicin se empeora antes de la carlie. Regresa aqui si peor o no mejor. INES POZO PA-C April 03, 2019 18:38
== END 2019-04-03 11:11 | disposition home or self-care (01) ==
LOC: FTE 09:44
DX: R42 Dizziness and giddiness (principal)
CPT/HCPCS: 99282